=== PATIENT | male | born 1970 | race Caucasian/White ===

== ENCOUNTER 2021-12-25 15:08 | Emergency (ER) | payer OTHER ==
[~2021-12-25] VITALS: Ht 172.7 cm; Wt 82.1 kg
[2021-12-25 15:17] VITALS: BP 105/82
--- NOTE | 2021-12-25 15:37 | NUR ---
PATIENT AMBULATE TO ROOM AND IN GOWN
--- NOTE | 2021-12-25 15:45 | NUR ---
51YR OLD MALE BIB SELF C/O RIGHT LEG PAIN X TODAY. PAIN LEVEL 5/10 RADIATES TO RIGHT FOOT WITH PRESSURE. DENIES CP OR SOB. DENIES ANY TRAUMA OR INJURY. NO SWELLING NOTED. GOOD ROM GOOD CAP REFILL. PT IS A&OX4 PT SITTING IN BED WITH SIDE RAILS UP X1 BED IN LOWEST POSITION. MORPHINE NO MED HX TO NOTE
[2021-12-25] MEDS ORDERED: KETOROLAC 30 MG/ML VIAL IM ONE (16:40)
--- NOTE | 2021-12-25 17:25 | NUR ---
US AT BEDSIDE
[2021-12-25] MEDS ORDERED: ACET-8386 PO (18:06)
[2021-12-25] MEDS ORDERED: ACET-1194 PO (18:06)
[2021-12-25] MEDS ORDERED: APIX5TAB PO (18:06)
--- NOTE | 2021-12-25 18:09 | NUR ---
PT SITTING ON SIDE OF BED RESP EVEN AND UNLABORED . PENDING DC PAPERWORK
[2021-12-25 18:18] VITALS: BP 135/96
--- NOTE | 2021-12-25 18:18 | NUR ---
Patient discharged with v/s stable. Written and verbal after care instructions given and explained. Patient alert, oriented and verbalized understanding of instructions. Ambulatory with steady gait. All questions addressed prior to discharge. ID band removed. Patient advised to follow up with PMD. Rx of ACETANUBIOGEB ELIQUIS given. Patient educated on indication of medication including possible reaction and side effects. Opportunity to ask questions provided and answered.
== END 2021-12-25 18:18 | disposition home or self-care (01) ==
LOC: MED 15:08
DX: I82.431 Acute embolism and thrombosis of right popliteal vein (principal); I82.441 Acute embolism and thrombosis of right tibial vein; Z88.5 Allergy status to narcotic agent; Z79.899 Other long term (current) drug therapy
CPT/HCPCS: 93971; 96372; 99284; J1885; Q0092